=== PATIENT | male | born 1940 | race Caucasian/White ===

== ENCOUNTER 2024-11-26 10:45 | Outpatient (CLI) | payer MEDICARE ==
[~2024-11-26 10:45] MED LIST: ASPI81TA53 PO; FURO-150 PO; HYDR-3972 PO; LOP12.5T PO; MIDO5TAB4 PO; POTA-206 PO; PRAV20TA17 PO
--- NOTE | 2024-11-26 13:00 | RADIOLOGY REPORT ---
DI CHEST,TWO VIEWS CLINICAL HISTORY: S/P CABG COMPARISON: DI CHEST,SINGLE VIEW on DOS: 11/10/24, DI CHEST,SINGLE VIEW on DOS: 11/09/24, DI CHEST,SINGLE VIEW on DOS: 11/08/24, DI CHEST,SINGLE VIEW on DOS: 11/07/24, DI CHEST,TWO VIEWS on DOS: 11/04/24, DI CHEST,SINGLE VIEW on DOS: 11/10/24 TECHNIQUE: Single frontal view of the chest was obtained FINDINGS: Lines and Tubes: Median sternotomy Lungs: Clear Pleura: No effusion. No pneumothorax. Cardiomediastinal contours: Cardiomegaly Bones: Left shoulder arthroplasty. IMPRESSION: No acute disease.
== END 2024-11-26 23:59 | disposition home or self-care (01) ==
LOC: RAD 10:45
PROVIDERS: ATTEND Thoracic Surgery (Cardiothoracic Vascular Surgery)
DX: I51.7 Cardiomegaly (principal); Z95.5 Presence of coronary angioplasty implant and graft
CPT/HCPCS: 71046

== ENCOUNTER 2024-12-21 07:15 | Emergency (ER) | payer MEDICARE ==
[~2024-12-21] VITALS: Ht 177.8 cm; Wt 81.4 kg
[2024-12-21 07:31] VITALS: TEMP 98.4
--- NOTE | 2024-12-21 08:12 | ELECTROCARDIOGRAPH REPORT ---
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 Leyda Stallings Measurements Intervals [place] Rate: 92 P: 52 VT: 182 QRS: 43 QRSD: 91 T: 77 QT: 348 QTc: 431 Interpretive Statements Sinus rhythm Atrial premature complexes in couplets Probable left atrial enlargement Borderline low voltage, extremity leads Electronically Signed On 12-21-2024 8:53:[address] Leyda Stallings Please click the below link to view image of tracing.
[2024-12-21] MEDS: ketorolac trometh 15mg/ml vial 15 MG/ML ML IM ONE (09:20)
[2024-12-21 10:00] VITALS: BP 131/79; PULSE 82; O2SAT 98
--- NOTE | 2024-12-21 10:09 | Physician Documentation ---
History of Present Illness ~ Chief Complaint: Headache Stated Complaint: DIZZY,FEVER Time Seen by MD: 09:16 OK to notify your PCP?: Yes Primary Medical Doctor: Dr. Jg Avery Source: patient Mode of Arrival: POV Exam Limitations: no limitations HPI 84 y/o male with chief complaint insomnia states he has had difficulty sleeping since he had a bypass surgery last month. He also reports that he took trazodone which was prescribed by his primary care provider for his insomnia and that the following day he could hardly get out of bed in his blood pressure was low and he also experienced a low-grade fever. He states so of course I do not want to take trazodone again. He was also prescribed Ativan which he took and states this did not help him sleep whatsoever. He has also tried melatonin. He also reports he has been having headaches and he is not sure if this is related to his heart. Denies worst headache of his life denies any recent trauma to his head. Pain is over his temporal area and back of his head. Does have some neck pain. Headache is better when he is lying down. Patient denies shortness of breath, cough, chest pain, abdominal pain, nausea, lower extremity edema, lightheadedness. Medication Reconciliation Allergies: Coded Allergies: No Known Allergies (Unverified , 12/21/24) Scheduled Aspirin (Children's Aspirin), 81 MG PO Q24H@0830 Furosemide (Lasix), 20 MG PO QAM Metoprolol Tartrate (Lopressor tablet), 12.5 MG PO Q12H Midodrine HCl (Midodrine HCl), 5 MG PO TID@08,12,16 Potassium Chloride (K-Dur), 10 MEQ PO DAILY Pravastatin Sodium (Pravastatin Sodium), 1 TAB PO DAILY, (Reported) Scheduled PRN Hydrocodone Bit/Acetaminophen (Hydrocodon-Acetaminophn 10-325 tablet), 1 TAB PO Q6H PRN for MODERATE PAIN 4-6 Past Medical History Past Medical History: No Pertinent History, Hypertension Past Surgical History: orthopedic surgeries Patient History: Patient reports no known family medical history. Drug Use: none Lives with: Spouse Lives In: Home Occupation: retired Review of Systems All Other Systems at this time: Reviewed and Negative Physical Exam Vital Signs: Temperature: 98.4, Source: Oral, Heart Rate: 82, Respiratory Rate: 16, BP: 147/60, Pulse Oximetry: 97, Weight: 81.400 Oxygen Flow Rate: 0 Physical Exam General Appearance: Alert, WD/WN. NAD. HEENT: NCAT, PERRL, EOMI. Neck: Supple, trachea midline. Cardiovascular: RRR. No m/r/g. Lungs: CTAB. Breathing unlabored Extremities: Normal inspection. No edema. Skin: Warm/dry, normal color Neurological: Alert and oriented x4, normal gait. Psychiatric: Affect congruent with mood. Progress Results/Orders Results/Orders Vital Signs 12/21/24 12/21/24 12/21/24 12/21/24 07:31 09:01 09:20 10:00 Temp 98.4 Pulse 82 79 82 Resp 18 16 16 16 B/P (MAP) 147/60 158/68 (98) 131/79 (96) Pulse Ox 97 99 98 O2 Flow Rate 0 0 0 12/21/24 10:17 Resp 16 Medical Decision Making Additional information obtaine: old records Findings Previous admission Differential Dx:Considerations: Include: GARCÍA-Cluster, GARCÍA-Migraine, GARCÍA- Hypertensive, GARCÍA-Muscular contraction, GARCÍA-Post lumbar puncture, Carbon monoxide toxicity, Close head injuyr, CVA, Fever induced, Hemorrhage-Epidural, Hemorrhage-Intracerebral, Hemorrhage-Subarachnoid, Hemorrhage-Subdural, Mass lesion, Meningitis, Post-traumtic, Pseudotumor cerebri, Sinusitis, Temporal arteritis, Trigeminal neuralgia, Other Additional Comment Patient's headache that has been waxing and waning sounds like occipital neuralgia. He does not have any tenderness over his sinuses or any sinus congestion he denies work worst headache of his life he denies any trauma to his head. His headache may also be related to his lack of sleep. Departure Time of Disposition: 15:24 Disposition: 01 HOME / SELF CARE / HOMELESS Impression: Primary Impression: Insomnia Qualified Codes: G47.00 - Insomnia, unspecified Additional Impression: Headache Qualified Codes: R51.9 - Headache, unspecified Condition: Stable Discharge Instructions: Insomnia Additional Instructions: Discuss mirtazepine with PCP as option for insomnia Time to peak for trazodone is 30 to 100minutes on empty stomach and up to 2.5hours if taken with food, so I am unclear why the trazodone worked to help you sleep but did not work until the next day. You could always try half dosage of what you took before since the full tablet lingered in your system so long and caused your blood pressure to decrease. Cause of headache could be occipital neuralgia or lack of sleep No red flag signs or symptoms on exam Referrals: NO PRIMARY CARE PROVIDER (PCP) Education Educated: Patient Educated regarding: diagnosis, treatment, need for follow up Signature Scribe Signature: x Attestation: ANNIA Salas Dec 21, 2024 10:09
[2024-12-21 10:17] VITALS: RESP 16
== END 2024-12-21 10:25 | disposition home or self-care (01) ==
LOC: ER 07:16
DX: G47.00 Insomnia, unspecified (principal); R51.9 Headache, unspecified; I10 Essential (primary) hypertension; Z79.82 Long term (current) use of aspirin; Z79.899 Other long term (current) drug therapy
CPT/HCPCS: 93005; 96372; 99283; J1885